=== PATIENT | female | born 1955 | race Two or more races ===

== ENCOUNTER 2018-01-03 07:26 | Emergency (ER) | payer OTHER ==
[2018-01-03 07:36] VITALS: BMI 28.8
--- NOTE | 2018-01-03 08:16 | PDOC ---
History of Present Illness - History of Present Illness Initial Comments: 01/03/18 11:05 62-year-old Japanese-speaking female with history of anemia, hypertension, asthma , GERD presents to the ER with chief complaint of persistent severe cough productive of creamy-colored sputum, tactile fevers and chills. Patient's symptoms have persisted for the past 24 hours. Patient also reports weakness and malaise. Patient denies nausea/vomiting/abdominal pain/diarrhea/dysuria/ hematuria. Patient denies recent history of travel nor hx/o sick contacts REVIEW OF SYSTEMS CONSTITUTIONAL: + fever, + chills, + fatigue EYES: No visual changes ENT: No ear pain, no sore throat CARDIOVASCULAR: No chest pain, no palpitations RESPIRATORY: + cough, no SOB GI: No abdominal pain, no nausea, no vomiting, no constipation, no diarrhea GENITOURINARY: No dysuria, no frequency, no hematuria MUSKULOSKELETAL: No backpain, no joint pain, no myalgias SKIN: No rash NEURO: No headache EXAMINATION CONSTITUTIONAL: pt is awake and alert; well noourished; in no apparent distress HEAD: Normocephalic; atraumatic EYES: PERRL; EOM intact ENMT: External appears normal; normal oropharynx NECK: Supple; non-tender; no cervical lymphadenopathy CARD: Normal S1, S2; no murmurs, rubs, or gallops RESP: Normal chest excursion with respiration; breath sounds clear and equal bilaterally; no wheezes, rhonchi, or rales ABD: Soft, non-distended; non-tender; no palpable organomegaly, no palpable hernias EXT: Normal ROM in all four extremities; non-tender to palpation; distal pulses intact SKIN: Warm, dry, no rash NEURO: No focal neurological deficiencies. <Abhilash Haines - Last Filed: 01/03/18 14:29> - General History Source: Patient Exam Limitations: No Limitations - History of Present Illness Initial Comments: 01/03/18 09:25 History obtained via [employer] [id number]. <Iram Elizalde - Last Filed: 01/03/18 14:48> - General Chief Complaint: Shortness of Breath Stated Complaint: DIFFICULTY BREATHING,FLU SYMPTOMS Time Seen by Provider: 01/03/18 08:16 Past History - Past Medical History Anemia: Yes Asthma: Yes (NO RECENT ATTACK) Cancer: No Cardiac Disorders: No CVA: No COPD: No CHF: No Dementia: No Diabetes: No GI Disorders: Yes (GERD,) Disorders: No HTN: Yes Hypercholesterolemia: Yes Liver Disease: No Seizures: No Thyroid Disease: No - Surgical History Abdominal Surgery: No Appendectomy: No Cardiac Surgery: No Cholecystectomy: No Lung Surgery: No Neurologic Surgery: No Orthopedic Surgery: No - Suicide/Smoking/Psychosocial Hx Smoking History: Never smoked Have you smoked in the past 12 months: No Hx Alcohol Use: No Drug/Substance Use Hx: No Substance Use Type: None Hx Substance Use Treatment: No <Abhilash Haines - Last Filed: 01/03/18 14:29> <Iram Elizalde - Last Filed: 01/03/18 14:48> - Past Medical History Allergies/Adverse Reactions: Allergies Allergy/AdvReac Type Severity Reaction Status Date / Time No Known Allergies Allergy Verified 01/03/18 07:31 Home Medications: Ambulatory Orders Calcium Carbonate [Calcium] 500 mg PO BID 01/03/18 Enalapril Maleate [Vasotec -] 10 mg PO DAILY 01/03/18 Hydrochlorothiazide [Hctz -] 25 mg PO DAILY 01/03/18 Oseltamivir Phosphate [Tamiflu -] 75 mg PO BID #10 capsule 01/03/18 Ranitidine HCl [Zantac] 150 mg PO DAILY 01/03/18 *Physical Exam - Vital Signs Last Vital Signs Temp Pulse Resp BP Pulse Ox 102.9 F H 96 H 22 154/74 95 01/03/18 07:31 01/03/18 07:31 01/03/18 07:31 01/03/18 07:31 01/03/18 07:31 <Abhilash Haines - Last Filed: 01/03/18 14:29> - Vital Signs Last Vital Signs Temp Pulse Resp BP Pulse Ox 102.9 F H 96 H 22 154/74 95 01/03/18 07:31 01/03/18 07:31 01/03/18 07:31 01/03/18 07:31 01/03/18 07:31 - Physical Exam Comments: 01/03/18 14:48 CONSTITUTIONAL: Well-appearing; well-nourished; in no apparent distress; febrile HEAD: Normocephalic; atraumatic EYES: PERRL; EOM intact ENMT: External appears normal; normal oropharynx NECK: Supple; non-tender; no cervical lymphadenopathy CARD: Normal S1, S2; no murmurs, rubs, or gallops RESP: Normal chest excursion with respiration; breath sounds clear and equal bilaterally; no wheezes, rhonchi, or rales ABD: Soft, non-distended; non-tender; no palpable organomegaly, no palpable hernias EXT: Normal ROM in all four extremities; non-tender to palpation; distal pulses intact SKIN: Warm, dry, no rash NEURO: No focal neurological deficiencies. <Iram Elizalde - Last Filed: 01/03/18 14:48> Heart Score/ECG Review #1 01/03/18 09:48 EKG obtained 9:42. Normal sinus rhythm 93 bpm. Possible left atrial enlargement. Left ventricular hypertrophy with repolarization abnormality. Abnormal EKG. <Iram Elizalde - Last Filed: 01/03/18 14:48> ED Treatment Course - LABORATORY CBC & Chemistry Diagram: 01/03/18 09:08 01/03/18 09:08 <Abhilash Haines - Last Filed: 01/03/18 14:29> - LABORATORY CBC & Chemistry Diagram: 01/03/18 09:08 01/03/18 09:08 <Iram Elizalde - Last Filed: 01/03/18 14:48> Medical Decision Making - Medical Decision Making 01/03/18 13:56 Patient is a 62-year-old female with history of hypertension, asthma who presented to the ER with flulike symptoms. On initial evaluation patient was noted to be febrile. Patient's received IV Tylenol, by mouth ibuprofen, IV fluids. Chest x-ray reveals no evidence of infiltrate or effusion. CBC/CMP are within normal limit. Urinalysis reveals microscopic hematuria only. I suspect influenza. Patient will benefit from tamiflu administration. will d/c with close f/u. <Abhilash Haines - Last Filed: 01/03/18 14:29> *DC/Admit/Observation/Transfer - Attestations Physician Attestion: 01/03/18 13:59 The documentation was prepared by the scribe under my direct supervision. I have reviewed the documentation which correctly represents the findings, medical decision-making and critical action taken by me. <Abhilash Haines - Last Filed: 01/03/18 14:29> - Attestations Scribe Attestion: 01/03/18 09:26 Documentation prepared by Iram Elizalde, acting as emergency medicine medical director for Abhilash Haines MD. <Iram Elizalde - Last Filed: 01/03/18 14:48> Diagnosis at time of Disposition: Flu - Discharge Dispostion Disposition: HOME Condition at time of disposition: Stable - Prescriptions Prescriptions: Oseltamivir Phosphate [Tamiflu -] 75 mg PO BID #10 capsule - Referrals Referrals: Aggie Hill MD [Primary Care Provider] - - Patient Instructions Printed Discharge Instructions: Influenza Additional Instructions: your symptoms are consistent with influenza infection. Take Tamiflu as indicated. Take Tylenol every 4-6 hours for fever as needed. Follow-up with your primary care physician. Your urinalysis reveals presence of red blood cells which requires outpatient follow-up but is not an emergency at this time. Return immediately for worsening symptoms. Print Language: AMHARIC
[2018-01-03] MEDS ORDERED: SODIUM CHLORIDE 0.9% 1000 ML INFUS.BAG IV STA (08:37)
[2018-01-03] MEDS ORDERED: ACETAMINOPHEN 500 MG TABLET (FP) PO ONE (08:38)
[2018-01-03] MEDS ORDERED: ACETAMINOPHEN 325 MG TABLET (FP) ONE (08:43)
[2018-01-03 09:17] LABS: URINE APPEARANCE CLEAR; URINE BILIRUBIN NEGATIVE (NEGATIVE); URINE BLOOD 3+ (NEGATIVE); URINE COLOR YELLOW; URINE GLUCOSE (UA) NEGATIVE (NEGATIVE); URINE KETONE NEGATIVE (NEGATIVE); URINE LEUK ESTERASE TRACE (NEGATIVE); URINE NITRITE NEGATIVE (NEGATIVE); URINE UROBILINOGEN NEGATIVE mg/dL (0.2-1.0)
[2018-01-03 09:22] LABS: URINE PROTEIN 1+ (NEGATIVE)
[2018-01-03 09:25] LABS: BASO % 0.3 % (0-2.0); HEMATOCRIT 38.4 % (32.4-45.2); HEMOGLOBIN 12.3 GM/dL (10.7-15.3); LYMPH % 8.7 % (8-40); MCH 25.1 pg (25.7-33.7); MEAN CELL VOLUME 78.3 fl (80-96); MEAN PLT VOLUME 9.2 fl (7.5-11.1); MONO % 5.1 % (3.8-10.2); NEUT % 85.9 % (42.8-82.8); PLATELET COUNT 155 K/MM3 (134-434); RDW 14.2 % (11.6-15.6); WHITE BLOOD COUNT 8.9 K/mm3 (4.0-10.0)
[2018-01-03 09:31] LABS: VENOUS PC02 40.8 mmHg (38-52); VENOUS PH 7.45 (7.32-7.42)
[2018-01-03 09:32] LABS: VENOUS PO2 36.8 mmHg (28-48)
[2018-01-03 09:37] LABS: EPI CELLS RARE /HPF (FEW); URINE MUCUS RARE
[2018-01-03 09:46] LABS: INR 1.17 (0.82-1.09); PROTHROMBIN TIME (PATIENT) 13.2 SEC (9.98-11.88)
[2018-01-03 09:48] LABS: ACTIVATED PTT 34.2 SECONDS (26.9-34.4)
[2018-01-03 09:51] LABS: ALBUMIN 3.4 g/dl (3.4-5.0); ANION GAP 8 (8-16); BILIRUBIN,TOTAL 0.4 mg/dL (0.2-1.0); BLOOD UREA NITROGEN 13 mg/dL (7-18); CALCIUM 7.8 mg/dL (8.5-10.1); CHLORIDE 102 mmol/L (98-107); CO2 27 mmol/L (21-32); CREATININE 0.7 mg/dL (0.55-1.02); GLUCOSE,RANDOM 109 mg/dL (74-106); POTASSIUM 3.1 mmol/L (3.5-5.1); SGOT/AST 19 U/L (15-37); SGPT/ALT 18 U/L (12-78); SODIUM 137 mmol/L (136-145); TOT PROT 7.1 g/dl (6.4-8.2)
[2018-01-03 09:53] LABS: ALK PHOS 67 U/L (45-117)
[2018-01-03 10:45] VITALS: BP 128/64
[2018-01-03] MEDS ORDERED: IBUPROFEN 400 MG TABLET (FP) PO ONE ×2 (11:11→11:21)
[2018-01-03] MEDS ORDERED: POTASSIUM CHLORIDE TABS 20 MEQ TABLET.ER (FP) PO ONE ×2 (11:12→11:21)
--- NOTE | 2018-01-03 11:40 | EKG ---
Test Reason : Blood Pressure : / mmHG Vent. Rate : 093 BPM Atrial Rate : 093 BPM P-R Int : 152 ms QRS Dur : 088 ms QT Int : 372 ms P-R-T Axes : 029 -02 021 degrees QTc Int : 462 ms NORMAL SINUS RHYTHM POSSIBLE LEFT ATRIAL ENLARGEMENT LEFT VENTRICULAR HYPERTROPHY WITH REPOLARIZATION ABNORMALITY ABNORMAL ECG WHEN COMPARED WITH ECG OF 30-NOV-2013 10:26, NONSPECIFIC T WAVE ABNORMALITY NOW EVIDENT IN INFERIOR LEADS T WAVE AMPLITUDE HAS DECREASED IN ANTERIOR LEADS Confirmed by GONZALO OTERO, YAMILA ([id number]) on 01/03/2018 11:40:09 AM Referred By: Confirmed By:YAMILA SÁNCHEZ MD
[2018-01-03 12:29] VITALS: PULSE 87; TEMP 98.7
[2018-01-03] MEDS ORDERED: OSELTAMIVIR PHOSPHATE 75 MG CAPSULE PO ONE (13:58)
[2018-01-03] MEDS ORDERED: OSELTAMIVIR PHOSPHATE 75 MG CAPSULE ONE (14:34)
== END 2018-01-03 14:45 | disposition home or self-care (01) ==
LOC: JER 07:26
PROC: 3E0337Z Introduction of Electrolytic and Water Balance Substance into Peripheral Vein, Percutaneous Approach (ICD-10-PCS; principal; 2018-01-03)
DX: J11.1 Influenza due to unidentified influenza virus with other respiratory manifestations (principal)
CPT/HCPCS: 36415; 71045-TC-FY; 80053; 81003; 81015; 82550; 82803; 83605; 84484; 85025; 85610; 85730; 86850; 86900; 86901; 87040; 87086; 93005; 93010; 99283-25

== ENCOUNTER 2019-06-08 09:51 | Emergency (ER) | payer MEDICARE, OTHER ==
[2019-06-08 09:55] VITALS: BP 120/64; PULSE 74; TEMP 98.1; BMI 29.2
--- NOTE | 2019-06-08 10:35 | PDOC ---
History of Present Illness - General Chief Complaint: Pain Stated Complaint: STOMACH PAIN/VOMITING Time Seen by Provider: 06/08/19 10:34 History Source: Patient Exam Limitations: No Limitations - History of Present Illness Initial Comments: 06/08/19 11:00 63 yo F w/ a h/o gastritis and HTN comes in c/o sudden onset of multiple episdes of NBNB diarrhea (more than 10 episodes) since 3am, and 2 episodes of NBNB vomiting. (+)diffuse abdominal tenderness which resolved after taking ranitidine. Still c/o discomfort and nausea, w/ feeling of generalized malaise. NO fever/chills, no CP. no SOB, no back pain, no urinary symptoms, no recent travel, no rash, no known sick contacts. No decrease in urination, (+)loss of appetite, has not eaten anything today. Past History - Past Medical History Allergies/Adverse Reactions: Allergies Allergy/AdvReac Type Severity Reaction Status Date / Time No Known Allergies Allergy Verified 06/08/19 09:55 Home Medications: Ambulatory Orders Calcium Carbonate [Calcium] 500 mg PO BID 01/03/18 Enalapril Maleate [Vasotec -] 10 mg PO DAILY 01/03/18 Hydrochlorothiazide [Hctz -] 25 mg PO DAILY 01/03/18 Ranitidine HCl [Zantac] 150 mg PO DAILY 01/03/18 Cyanocobalamin (Vitamin B-12) [Vitamin B-12] 100 mcg PO DAILY 06/08/19 Anemia: Yes Asthma: Yes (NO RECENT ATTACK) Cancer: No Cardiac Disorders: No CVA: No COPD: No CHF: No Dementia: No Diabetes: No GI Disorders: Yes (GERD,) Disorders: No HTN: Yes Hypercholesterolemia: Yes Liver Disease: No Seizures: No Thyroid Disease: No - Surgical History Abdominal Surgery: No Appendectomy: No Cardiac Surgery: No Cholecystectomy: No Lung Surgery: No Neurologic Surgery: No Orthopedic Surgery: No - Suicide/Smoking/Psychosocial Hx Smoking History: Never smoked Have you smoked in the past 12 months: No Hx Alcohol Use: No Drug/Substance Use Hx: No Substance Use Type: None Hx Substance Use Treatment: No Review of Systems - Review of Systems Able to Perform ROS?: Yes Constitutional: Yes: Malaise. No: Chills, Fever, Night Sweats HEENTM: No: Eye Pain, Recent change in vision, Throat Pain Respiratory: No: Cough, Shortness of Breath Cardiac (ROS): No: Chest Pain, Palpitations, Chest Tightness ABD/GI: Yes: Diarrhea, Nausea, Vomiting, Abdominal cramping : No: Dysuria, Hematuria Musculoskeletal: No: Back Pain Integumentary: No: Rash Neurological: No: Headache, Numbness, Dizziness Psychiatric: Yes: Change in Appetite Endocrine: No: Unexplained Weight Loss *Physical Exam - Vital Signs Last Vital Signs Temp Pulse Resp BP Pulse Ox 98.1 F 74 18 120/64 98 06/08/19 09:53 06/08/19 09:53 06/08/19 09:53 06/08/19 09:53 06/08/19 09:53 - Physical Exam General Appearance: Yes: Nourished. No: Apparent Distress HEENT: positive: SOFIE, Normal ENT Inspection, Normal Voice. negative: Pale Conjunctivae, Scleral Icterus (R), Scleral Icterus (L) Neck: positive: Supple. negative: Decreased range of motion, Tender midline Respiratory/Chest: positive: Lungs Clear, Normal Breath Sounds. negative: Respiratory Distress, Accessory Muscle Use Cardiovascular: positive: Regular Rhythm, Regular Rate Gastrointestinal/Abdominal: positive: Normal Bowel Sounds, Tender (LLQ tenderness, no tenderness at McBurney's point, (-)reyna's sign), Soft Musculoskeletal: positive: Normal Inspection. negative: CVA Tenderness, Decreased Range of Motion Extremity: positive: Normal Capillary Refill, Normal Inspection, Normal Range of Motion. negative: Tender, Pedal Edema Integumentary: positive: Normal Color, Dry. negative: Jaundice, Rash Neurologic: positive: Fully Oriented, Alert, Normal Mood/Affect ED Treatment Course - LABORATORY CBC & Chemistry Diagram: 06/08/19 11:08 06/08/19 11:08 Medical Decision Making - Medical Decision Making 06/08/19 11:03 63 yo F w/ likely AGE, Will do labs R/O dehydration because she has had more than 10 episodes of diarrhea today. WIll give zofran for nausea, and IV fluids then will reassess. 06/08/19 13:16 Pt feels a lot better, she is asking to get discharged. All labs reviewed. Hematuria is not new, has been present in the past. Pt tolerating PO, she is non toxic appearing, asking to get discharged. PMD follow up in 2 days Return for worsening/concerning symptoms Pt verbalizes understanding and agrees with plan 06/08/19 13:20 *DC/Admit/Observation/Transfer Diagnosis at time of Disposition: Gastroenteritis - Discharge Dispostion Disposition: HOME Condition at time of disposition: Stable - Referrals Referrals: Aggie Hill MD [Primary Care Provider] - - Patient Instructions Printed Discharge Instructions: DI for Viral Gastroenteritis -- Adult, Gastroenteritis Diet Additional Instructions: Please follow up with your regular doctor in 2-3 days for reevaluation. Do not eat any greasy/dairy foods, bland diet for the next couple of days. Return to the ER for worsening/concerning symptoms. - Post Discharge Activity
[2019-06-08] MEDS ORDERED: SODIUM CHLORIDE 1,000 ML IV STA (10:47)
[2019-06-08] MEDS ORDERED: ONDANSETRON 4 MG/2 ML VIAL IVPUSH ONE (10:48)
[2019-06-08] MEDS ORDERED: ONDANSETRON 4 MG/2 ML VIAL ONE (10:52)
--- NOTE | 2019-06-08 10:55 | PDOC ---
*Physical Exam - Vital Signs Last Vital Signs Temp Pulse Resp BP Pulse Ox 98.1 F 74 18 120/64 98 06/08/19 09:53 06/08/19 09:53 06/08/19 09:53 06/08/19 09:53 06/08/19 09:53 ED Treatment Course - LABORATORY CBC & Chemistry Diagram: 06/08/19 11:08 06/08/19 11:08 Progress Note - Progress Note Progress Note: The patient was seen and evaluated in conjunction with LOUISA Degroot under my direct supervision, ancillary studies were reviewed. I independently interviewed and evaluated the patient and I agree with the plan as outlined by LOUISA Degroot . *DC/Admit/Observation/Transfer Diagnosis at time of Disposition: Gastroenteritis - Discharge Dispostion Disposition: HOME Condition at time of disposition: Stable - Referrals Referrals: Aggie Hill MD [Primary Care Provider] - - Patient Instructions Printed Discharge Instructions: DI for Viral Gastroenteritis -- Adult, Gastroenteritis Diet Additional Instructions: Please follow up with your regular doctor in 2-3 days for reevaluation. Do not eat any greasy/dairy foods, bland diet for the next couple of days. Return to the ER for worsening/concerning symptoms. - Post Discharge Activity
[2019-06-08 11:31] LABS: EPI CELLS 1.3 /HPF (0-5/HPF); HYALINE CASTS 15 /lpf (0-8); URINE APPEARANCE CLEAR; URINE BACTERIA 0.5 /hpf (NEGATIVE); URINE BILIRUBIN NEGATIVE (NEGATIVE); URINE COLOR YELLOW; URINE GLUCOSE (UA) NEGATIVE (NEGATIVE); URINE KETONE TRACE (NEGATIVE); URINE LEUK ESTERASE NEGATIVE (NEGATIVE); URINE NITRITE NEGATIVE (NEGATIVE); URINE PROTEIN TRACE (NEGATIVE); URINE RBC 10 /hpf (0-4); URINE UROBILINOGEN 0.2 mg/dL (0.2-1.0); URINE WBC 2 /hpf (0-5)
[2019-06-08 11:34] LABS: BASO % 0.2 % (0-2.0); EOS % 0.8 % (0-4.5); HEMATOCRIT 40.7 % (32.4-45.2); HEMOGLOBIN 13.4 GM/dL (10.7-15.3); LYMPH % 5.6 % (8-40); MCH 26.4 pg (25.7-33.7); MCHC 32.9 g/dl (32.0-36.0); MEAN CELL VOLUME 80.1 fl (80-96); MEAN PLT VOLUME 9.3 fl (7.5-11.1); MONO % 7.2 % (3.8-10.2); NEUT % 86.2 % (42.8-82.8); PLATELET COUNT 190 K/MM3 (134-434); RBC 5.08 M/mm3 (3.60-5.2); RDW 14.8 % (11.6-15.6); WHITE BLOOD COUNT 12.5 K/mm3 (4.0-10.0)
[2019-06-08 11:49] LABS: MAGNESIUM 2.1 mg/dL (1.8-2.4); PHOSPHOROUS 3.7 mg/dL (2.5-4.9)
[2019-06-08 11:52] LABS: BILIRUBIN,TOTAL 0.4 mg/dL (0.2-1); BLOOD UREA NITROGEN 15.1 mg/dL (7-18); CALCIUM 8.8 mg/dL (8.5-10.1); CREATININE 0.7 mg/dL (0.55-1.3); POTASSIUM 3.8 mmol/L (3.5-5.1); TOT PROT 7.4 g/dl (6.4-8.2)
== END 2019-06-08 13:34 | disposition home or self-care (01) ==
LOC: JER 09:51
PROC: 3E0337Z Introduction of Electrolytic and Water Balance Substance into Peripheral Vein, Percutaneous Approach (ICD-10-PCS; principal; 2019-06-08)
PROC: 3E033GC Introduction of Other Therapeutic Substance into Peripheral Vein, Percutaneous Approach (ICD-10-PCS; 2019-06-08)
DX: K52.9 Noninfective gastroenteritis and colitis, unspecified (principal); I10 Essential (primary) hypertension; Z87.19 Personal history of other diseases of the digestive system
CPT/HCPCS: 36415; 80053; 81003; 83690; 83735; 84100; 85025; 87086; 96361; 96374; 99283-25; J7030

== ENCOUNTER 2023-01-10 04:33 | Day surgery (SDC) | payer OTHER ==
[2023-01-04 11:19] VITALS: BMI 33.2
[2023-01-10 08:22] VITALS: TEMP 97
[2023-01-10 09:19] VITALS: BP 138/30; PULSE 64; RESP 17
== END 2023-01-10 09:20 | disposition home or self-care (01) ==
LOC: JASU-ENDO 04:33
PROVIDERS: ATTEND Internal Medicine Gastroenterology
PROC: 0DJD8ZZ Inspection of Lower Intestinal Tract, Via Natural or Artificial Opening Endoscopic (ICD-10-PCS; principal; 2023-01-10 08:00)
DX: Z12.11 Encounter for screening for malignant neoplasm of colon (principal); K64.8 Other hemorrhoids

== ENCOUNTER 2023-01-17 04:42 | Day surgery (SDC) | payer OTHER ==
[2023-01-13 14:52] VITALS: BMI 33.2
[2023-01-17 13:33] VITALS: BP 196/85; PULSE 66; RESP 14; TEMP 97
== END 2023-01-17 13:00 | disposition home or self-care (01) ==
LOC: JASU-ENDO 04:42
PROVIDERS: ATTEND Internal Medicine Gastroenterology
DX: Z53.8 Procedure and treatment not carried out for other reasons (principal)

== ENCOUNTER 2023-01-17 13:55 | Emergency (ER) | payer OTHER ==
[2023-01-17 14:06] VITALS: PULSE 58; RESP 18; TEMP 97.9; BMI 34.0
[2023-01-17 16:11] VITALS: BP 156/86
== END 2023-01-17 16:29 | disposition home or self-care (01) ==
LOC: JER 13:55
DX: I10 Essential (primary) hypertension (principal)
CPT/HCPCS: 93005; 93010; 99283-25